=== PATIENT | male | born 1945 | race Caucasian/White ===

== ENCOUNTER → 2021-06-28 | Outpatient (CLI) | payer OTHER | END | disposition home or self-care (01) | LOC: SHCH 14:41 | PROVIDERS: ATTEND Internal Medicine | DX: I08.8 Other rheumatic multiple valve diseases (principal); I48.0 Paroxysmal atrial fibrillation; E78.5 Hyperlipidemia, unspecified; I77.810 Thoracic aortic ectasia | CPT/HCPCS: 93306 ==

== ENCOUNTER → 2022-05-19 | Outpatient (CLI) | payer OTHER | END | disposition home or self-care (01) | LOC: RAH 13:03 | PROVIDERS: ATTEND Internal Medicine Cardiovascular Disease | DX: Z13.6 Encounter for screening for cardiovascular disorders (principal); I51.5 Myocardial degeneration | CPT/HCPCS: 75571 ==

== ENCOUNTER → 2022-07-01 | Outpatient (CLI) | payer OTHER ==
[~2022-07-01] MED LIST: REGADENOSON 0.4 MG/5 ML PF SYG IVP SCH
== END | disposition home or self-care (01) ==
LOC: SHCH 08:13
PROVIDERS: ATTEND Internal Medicine Cardiovascular Disease
DX: R07.9 Chest pain, unspecified (principal); I48.91 Unspecified atrial fibrillation; I51.7 Cardiomegaly
CPT/HCPCS: 78452; 96374; 93017; J2785; A9500 ×2

== ENCOUNTER 2023-05-19 05:56 | Day surgery (SDC) | payer OTHER ==
[2023-05-17 11:00] LABS: BASOPHILS # (AUTO) 0.04 K/uL (0.00-0.20); BASOPHILS % (AUTO) 0.6 % (0.0-5.0); EOSINOPHILS # (AUTO) 0.22 K/uL (0.00-0.70); EOSINOPHILS % (AUTO) 3.1 % (0.0-8.0); HEMATOCRIT 46.1 % (42-54); IMMATURE GRANULOCYTE ABSOLUTE 0.03 K/uL (0-1); LYMPHOCYTES # (AUTO) 2.9 K/uL (1.0-4.8); LYMPHOCYTES % (AUTO) 40.7 % (21.0-51.0); MEAN CORPUSCULAR HGB CONC 33.2 g/dL (32.0-36.0); MEAN CORPUSCULAR VOLUME 99.6 fL (79-99); MONOCYTES # (AUTO) 0.7 K/uL (0.1-1.0); NEUTROPHILS # (AUTO) 3.2 K/uL (1.8-7.7); NEUTROPHILS % (AUTO) 45.2 % (40.0-77.0); PLATELET COUNT (AUTO) 220 K/uL (130-400); RED BLOOD CELL COUNT(AUTO) 4.63 MIL/uL (4.50-6.20); RED CELL DISTRIBUTION WIDTH 13.5 % (11.0-15.5); WHITE BLOOD COUNT (AUTO) 7.1 K/uL (4.8-10.8)
[2023-05-17 11:13] LABS: CREATININE 0.9 mg/dL (0.5-1.5); POTASSIUM 4.4 mmol/L (3.5-5.1)
[2023-05-17 11:14] LABS: APPEARANCE,URINE CLEAR (CLEAR); BILIRUBIN,URINE NEGATIVE (NEGATIVE); COLOR,URINE LIGHT-YELLOW (YELLOW); GLUCOSE, URINE (UA) NEGATIVE (NEGATIVE); KETONES,URINE NEGATIVE (NEGATIVE); LEUKOCYTE ESTERASE ,URINE NEGATIVE Leu/uL (NEGATIVE); NITRATE,URINE NEGATIVE (NEGATIVE); OCCULT BLOOD,URINE NEGATIVE (NEGATIVE); PROTEIN,URINE NEGATIVE (NEGATIVE); UROBILINOGEN,URINE 0.2 mg/dL (0.2-1.0)
[2023-05-17 11:15] LABS: ADD UA MICROSCOPIC NO
[2023-05-17 11:34] LABS: INR 0.94 (0.85-1.15)
[2023-05-17 11:35] LABS: PARTIAL THROMBOPLASTIN TIME 31.3 SEC (26.3-35.5)
[2023-05-17 11:36] LABS: B-TYPE NATRIURETIC PEPTIDE 132 pg/mL (0-100)
[2023-05-17 11:43] VITALS: BP 165/88; PULSE 72; RESP 17
[2023-05-19] VITALS (10 sets, daily range): BP systolic 123–144; BP diastolic 70–90; PULSE 61–95; RESP 15–18
[~2023-05-19] VITALS: Ht 185.4 cm; Wt 106.0 kg
[~2023-05-19 05:56] MED LIST changes: +APIX5TAB PO; +BUPR-49 PO; +DOCUSATE PO; +FINA5TAB41 PO; +MELO-108 PO; -REGADENOSON 0.4 MG/5 ML PF SYG IVP SCH; +SENNA PO; +SIMV-46 PO; +TERA10CA4 PO
[2023-05-19] MEDS ORDERED: 0.9%NACL 1000ML 1,000 ML IV ONE (07:02)
[2023-05-19] MEDS ORDERED: SODIUM BICARB 50MEQ 50ML VIAL 50 ML ONE (08:39)
[2023-05-19] MEDS ORDERED: MIDAZOLAM HCL 1 MG/ML 2ML VIAL ONE ×2 (08:39→08:51)
[2023-05-19] MEDS ORDERED: IOHEXOL 350 MG/ML 100ML INFUS..BTL IV ONE (08:39)
[2023-05-19] MEDS ORDERED: MEPERIDINE-PF 25 MG/ML SYG ONE ×2 (08:39→08:51)
[2023-05-19] MEDS ORDERED: LIDOCAINE HCL 400MG/20ML VIAL ONE (08:39)
[2023-05-19] MEDS ORDERED: NITROGLYCERIN 50MG VIAL ONE (08:40)
[2023-05-19] MEDS ORDERED: HEPARIN 10,000 UNIT/10ML (1,000 UNIT/ML) VIAL ONE (08:40)
[2023-05-19] MEDS ORDERED: NICARDIPINE 25MG INJ IV ONE (08:40)
[2023-05-19] MEDS ORDERED: 0.9%NACL 1000ML 1,000 ML IV SCH (09:30)
== END 2023-05-19 13:45 | disposition home or self-care (01) ==
LOC: DAH 05:56
PROVIDERS: ATTEND Internal Medicine Cardiovascular Disease
DX: I25.119 Atherosclerotic heart disease of native coronary artery with unspecified angina pectoris (principal); I50.32 Chronic diastolic (congestive) heart failure; I48.21 Permanent atrial fibrillation; M19.90 Unspecified osteoarthritis, unspecified site; Z79.01 Long term (current) use of anticoagulants; Z79.899 Other long term (current) drug therapy; Z82.49 Family history of ischemic heart disease and other diseases of the circulatory system; Z83.3 Family history of diabetes mellitus; Z98.890 Other specified postprocedural states
CPT/HCPCS: 80048; 83880; 85025; 85610; 85730; 81003; 36415; 71045; 93005; 93458; C1769; A4649; C1894; Q9965; J3490 ×4; J7030; J1644 ×2; J2250 ×2; J2175 ×2; Q9967; A4215; A4222; A4221; A4663; A4216; A4606; A4223 ×3; 99156; 99157

== ENCOUNTER 2023-07-04 15:42 | Emergency (ER) | payer OTHER ==
[~2023-07-04] VITALS: Ht 182.9 cm; Wt 104.3 kg
[2023-07-04 15:44] VITALS: BP 170/76; PULSE 72; RESP 20
[2023-07-04] MEDS: METOCLOPRAMIDE 10 MG/2 ML VIAL IVP ONE (16:18)
[2023-07-04] MEDS: MORPHINE 2 MG SYG IVP ONE (16:18)
[2023-07-04] MEDS: CEFAZOLIN SODIUM 2 GM VIAL IVPB SCH (16:21)
[2023-07-04] MEDS ORDERED: ACET-2079 PO (18:52)
[2023-07-04] MEDS ORDERED: FLUT16H NASAL (18:52)
[2023-07-04] MEDS ORDERED: AMOX1TAB16 PO (18:52)
== END 2023-07-04 19:21 | disposition home or self-care (01) ==
LOC: EDH 15:42
DX: S02.2XXA Fracture of nasal bones, initial encounter for closed fracture (principal); S01.81XA Laceration without foreign body of other part of head, initial encounter; S01.21XA Laceration without foreign body of nose, initial encounter; E78.00 Pure hypercholesterolemia, unspecified; I10 Essential (primary) hypertension; I48.91 Unspecified atrial fibrillation; Z79.01 Long term (current) use of anticoagulants; Z79.1 Long term (current) use of non-steroidal anti-inflammatories (NSAID); W01.0XXA Fall on same level from slipping, tripping and stumbling without subsequent striking against object, initial encounter; Y93.89 Activity, other specified; Y92.89 Other specified places as the place of occurrence of the external cause; Y99.8 Other external cause status
CPT/HCPCS: 99285; 70450; 96365; 96375; 72125; 70486; 12015; J2270; J2765; J0690; 12013

== ENCOUNTER → 2024-03-28 | Outpatient (CLI) | payer OTHER ==
[~2024-03-28] MED LIST changes: +AMOX1TAB16 PO; +FLUT16H NASAL
--- NOTE | 2024-03-28 11:55 | HMCIMG ---
CHEST 1VW REASON: SHORTNESS OF BREATH; COMPARISON WITH V/Q SCAN COMPARISON: 05/17/2023 FINDINGS: Single view of the chest was obtained. Lungs are clear. Heart size is normal. There is no pulmonary vascular congestion. Mediastinum and bony thorax appear unremarkable. IMPRESSION: 1. Normal single view chest x-ray.
--- NOTE | 2024-03-28 12:09 | HMCIMG ---
NM PULMONARY/LUNG VENTILATION REASON: SHORTNESS OF BREATH COMPARISON: None TECHNIQUE: Routine images are obtained following and injection of technetium 99 MAA 4.6 mCi for perfusion imaging and inhalation 5 mCi xenon-133 gas for ventilation images. FINDINGS: There is normal-appearing pulmonary perfusion. There are no focal or wedge shaped defects to suggest a pulmonary embolism. Ventilation images are normal as well. IMPRESSION: 1. Normal ventilation/perfusion lung scan, no evidence of pulmonary embolism.
== END | disposition home or self-care (01) ==
LOC: RAH 08:49
PROVIDERS: ATTEND Internal Medicine Pulmonary Disease
DX: R06.09 Other forms of dyspnea (principal)
CPT/HCPCS: 78579; 71045; A9558

== ENCOUNTER → 2024-06-15 | Outpatient (CLI) | payer OTHER ==
--- NOTE | 2024-06-17 11:05 | HMCSR ---
APPROVED REPORT EXAM: Two-dimensional and M-mode echocardiogram with Doppler and color Doppler. INDICATION ICD: R06.02 Shortness of breath 2D Dimensions RVDd4.0 cmLVEF(%)34.3 (>50%)LVED Vol(simp.)147.0 mL IVSd0.6 (0.7-1.1cm)FS(%)16 %LVES Vol(simp.)74.2 mL LVDd4.9 (3.8-5.6cm)LA (2D)5.0 (1.6-4.0cm)LVEF(%, simp.)50 % PWd1.6 (0.7-1.1cm)Ao Root(2D)4.1 (2.0-3.7cm)LA ESV INDEX (4CH)39.30 mL/m2 IVSs0.8 cmLVOT diam2.4 (1.8-2.4cm)LA ESV INDEX (2CH)54.00 mL/m2 LVDs4.1 (2.5-4.0cm)LA ESV INDEX (BP)45.50 mL/m2 PWs1.4 cm M-Mode Dimensions EPSS1.1 cm LA (MM)5.2 (1.6-4.0cm) Ao Root(MM)4.0 (2.0-3.7cm) Aortic Valve AoV VTI0.3 mAo Mean GR3.0 mmHgLVOT VTI0.17 m ROMEO (VMAX)2.9 cm2Al P1/2T793 msAVA (VTI) 2.9 cm2 Mitral Valve MV E Vmax83.4 cm/sDECEL Jaws572 ms MV A Vmax42.2 cm/sP 1/2 T55 ms E/A ratio2.0MVA (PHT)4.0 cm2 MR Max PG68 mmHg TDI E/E' Tshmed27.6E/E' Lateral8.8 Medial E' Peak V6.60 cm/sLateral E' Peak V9.50 cm/s Tricuspid Valve TR Vmax1.8 m/sRAP (EST) 8 dgGwVBPV97.1 mmHg TR Peak GR13.1 mmHg Left Ventricle The left ventricle is normal size. There is normal left ventricular wall thickness. LVEF is 45%. No l eft ventricle thrombus noted on this study. The left ventricular diastolic function is normal. Right Ventricle The right ventricle is normal size. The right ventricular systolic function is normal. Atria The left atrium is severely dilated. There is no mass or thrombus suspected in the left atrium. The r ight atrium is moderately dilated. There is no mass or thrombus suspected in the right atrium. Aortic Valve The aortic valve is normal in structure. Trace of aortic regurgitation is present. There is no aortic valvular stenosis. Mitral Valve The mitral valve is normal in structure. There is mild mitral valve regurgitation noted. There is no mitral valve stenosis. Tricuspid Valve The tricuspid valve is normal in structure. There is trace of tricuspid valve regurgitation noted. Pulmonic Valve The pulmonary valve is normal in structure. There is no pulmonic valvular regurgitation. Great Vessels The aortic root is normal in size. IVC is not well visualized. Pericardium There is no pericardial effusion. Other Information Quality : Fair Conclusion The left ventricle is normal size. LVEF is 45%. No left ventricle thrombus noted on this study. The right ventricle is normal size. The left atrium is severely dilated. There is no mass or thrombus suspected in the left atrium. The right atrium is moderately dilated. The aortic valve is normal in structure. Trace of aortic regurgitation is present. There is no aortic valvular stenosis. The mitral valve is normal in structure. There is mild mitral valve regurgitation noted. There is no mitral valve stenosis. The tricuspid valve is normal in structure. There is trace of tricuspid valve regurgitation noted. There is no pulmonic valvular regurgitation. The aortic root is normal in size. IVC is not well visualized. There is no pericardial effusion.
== END | disposition home or self-care (01) ==
LOC: SHCH 08:20
PROVIDERS: ATTEND Internal Medicine Cardiovascular Disease
DX: I34.0 Nonrheumatic mitral (valve) insufficiency (principal); I51.7 Cardiomegaly; R06.02 Shortness of breath
CPT/HCPCS: 93306

== ENCOUNTER 2024-11-25 05:43 | Observation (INO) | payer OTHER ==
[2024-11-21 09:55] LABS: IMMATURE GRANULOCYTE ABSOLUTE 0.03 K/uL (0-1); NUCLEATED RED BLOOD CELLS 0.0 % (0.0-0.19); PLATELET COUNT (AUTO) 213 K/uL (130-400); RED BLOOD CELL COUNT(AUTO) 4.37 MIL/uL (4.50-6.20); RED CELL DISTRIBUTION WIDTH 13.2 % (11.0-15.5); WHITE BLOOD COUNT (AUTO) 7.6 K/uL (4.8-10.8)
[2024-11-21 09:58] VITALS: BP 131/82; PULSE 65; RESP 17; TEMP 97.5
[2024-11-21 10:03] LABS: CREATININE 1.0 mg/dL (0.5-1.3); GLOMERULAR FILTR. RATE CALC 78.0 mL/min (>90); GLUCOSE,RANDOM 95.0 mg/dL (70-105); SODIUM SERUM 143.0 mmol/L (136-145); UREA NITROGEN, BLOOD 18.0 mg/dL (7-18)
[2024-11-21 10:04] LABS: INR 1.03 (0.85-1.15)
--- NOTE | 2024-11-21 10:20 | NUR ---
RE: IS INITIAL IS INITIAL TEACHING DONE BY RT AISHA DURING PREOP.
[2024-11-25] VITALS (26 sets, daily range): BP systolic 99–145; BP diastolic 54–84; PULSE 52–84; RESP 14–18; TEMP 97–97.8; O2SAT 95–98
[~2024-11-25] VITALS: Ht 180.3 cm; Wt 108.3 kg
[~2024-11-25 05:43] MED LIST changes: +ALBU18HF7 IH; -AMOX1TAB16 PO; +ATOR40TA69 PO; -BUPR-49 PO; -DOCUSATE PO; -MELO-108 PO; +METO-391 PO; +SENN8.6T32 PO; -SENNA PO; +SILD25TA PO; -SIMV-46 PO; +TIOT4MIS3 IH; +VIT1CAPS5 PO
[2024-11-25] MEDS: LACTATED RINGERS 1000ML 1,000 ML IV ONE (06:28)
[2024-11-25] MEDS: GABAPENTIN 300 MG CAPSULE ONE (06:37)
[2024-11-25] MEDS: FAMOTIDINE 20MG VIAL IV ONE (06:38)
[2024-11-25] MEDS ORDERED: LIDOCAINE PF 100MG/5ML (2%) SYRINGE 5ML ONE (06:56)
--- NOTE | 2024-11-25 07:24 | DS ---
Discharge Summary Hospital Course Summary: The patient was admitted to the hospital postoperatively on 11/25/2024 after undergoing right total knee arthroplasty. They did well with routine postoperative pain control. They worked well with physical therapy. They developed some acute blood loss anemia but remained asymptomatic. The hospital course was otherwise uncomplicated. They were subsequently able to be discharged on postoperative day [] once discharge arrangements were made with home health physical therapy. Assessment/Plan: ASSESSMENT: [ ] PLAN: [ ] Home Medications: Reported Medications Tiotropium Br/Olodaterol HCl (Stiolto Respimat Inhal [place]) 2.5 Mcg-2.5 Mcg/Actuation Mist.inhal, 4 GM IH DAILY 11/21/24 Fluticasone Propionate (Flonase Nasal [employer]) 50 Mcg/Actuation [employer], 1 SPRAY NASAL HS, SPRAY 11/21/24 Atorvastatin Calcium (LIPITOR) 40 Mg Tablet, 40 MG PO HS, TAB 11/21/24 Albuterol Sulfate (Ventolin Hfa) 90 Mcg Hfa.aer.ad, 1 PUFF IH Q4HPRN PRN for SHORTNESS OF BREATH, INHALER 11/21/24 Sildenafil Citrate (Viagra) 25 Mg Tablet, 25 MG PO DAILY PRN for ERECTILE DYSFUNCTION, TAB 11/21/24 Sennosides (Senna) 8.6 Mg Tablet, 8.6 MG PO HS, TAB 11/21/24 Vit A/Vit C/Vit E/Zinc/Copper (Preservision Areds Softgel) 4,296-226 Capsule, 2 EACH PO HS, CAP 11/21/24 Metoprolol Succinate (Metoprolol Succinate) 50 Mg Tab.er.24h, 50 MG PO HS, TAB 11/21/24 Terazosin HCl (Terazosin HCl) 10 Mg Capsule, 10 MG PO HS, CAP 05/17/23 Finasteride (Finasteride) 5 Mg Tablet, 5 MG PO HS, TAB 05/17/23 Apixaban (Eliquis) 5 Mg Tablet, 5 MG PO BID, TAB 05/17/23 Discontinued Reported Medications Meloxicam (Meloxicam) 15 Mg Tablet, 15 MG PO DAILY, TAB 05/17/23 [Docusate/Sennos] No Conflict Check, 1 TAB PO BID 05/17/23 Simvastatin (Simvastatin) 40 Mg Tablet, 20 MG PO HS, TAB 05/17/23 Bupropion HCl (Bupropion Xl) 150 Mg Tab.er.24h, 150 MG PO AM, TAB 05/17/23 Discontinued Scripts Fluticasone Propionate (Flonase Nasal [employer]) 50 Mcg/Actuation [employer], 50 MCG NASAL BID, #1 BOTTLE Prov:CECE ROSS 07/04/23 Amoxicillin/Potassium Clav (Amox Tr-K Clv 875-125 mg Tab) 875 Mg-125 Mg Tablet, 1 EACH PO BID for 10 Days, #20 TAB Prov:CECE ROSS 07/04/23 JOHAN DE JESUS MD Nov 25, 2024 07:24
[2024-11-25] MEDS: TRANEXAMIC ACID 1000MG/10ML ONE (07:30)
[2024-11-25] MEDS: 0.9%NACL 1000ML 1,000 ML IV SCH (07:30)
[2024-11-25] MEDS ORDERED: FERROUS FUMARATE 324 MG TABLET PO PRN (07:30)
[2024-11-25] MEDS ORDERED: PoTASSium chloRIDE 20MEQ ER 20 MEQ ERTAB PO PRN (07:30)
[2024-11-25] MEDS ORDERED: HYDROcodone/APAP 5/325 1 TAB TABLET PO PRN (07:30)
[2024-11-25] MEDS ORDERED: PoTASSium chl 10% ELIXIR 20MEQ 20 MEQ/15 ML UDCUP PO PRN (07:30)
[2024-11-25] MEDS ORDERED: SILDENAFIL CITRATE 25 MG PO PRN (07:30)
[2024-11-25] MEDS ORDERED: CALCIUM CARB 500MG PO PRN (07:30)
--- NOTE | 2024-11-25 07:39 | EKG ---
[facility] Test Date: 2024-11-25 Test Time: 06:44:44 Pat Name: ALEC ESTRADA Department[facility] Room: 401 Gender: M [employer]ader: [id number] : 1945 Requested By: DELGADO DUNCAN Order Number: [id number] Reading MD: Teressa Messer Measurements Intervals Jelm Rate: 68 P: 0 AK: 0 QRS: 12 QRSD: 89 T: 47 QT: 422 QTc: 448 Interpretive Statements Atrial fibrillation Compared to ECG 05/17/2023 10:51:28 No significant changes Electronically Signed On 11-25-2024 15:30:33 CDT by Teressa Messer Please click the below link to view image of tracing.
[2024-11-25] MEDS ORDERED: GLYCOPYRROLATE 0.2 MG/ML 5 ML VIAL ONE (07:40)
[2024-11-25] MEDS ORDERED: NEOSTIGMINE METHYLSULFATE 1MG/ML IV ONE (07:41)
[2024-11-25] MEDS ORDERED: ALBUTEROL SULFATE IH PRN (08:00)
[2024-11-25] MEDS: OLODATEROL HCL IH SCH (09:00)
[2024-11-25] MEDS: TIOTROPIUM BR IH SCH (09:00)
[2024-11-25] MEDS: TRANEXAMIC ACID 1000MG/10ML IV ONE ×2 (09:22)
--- NOTE | 2024-11-25 10:36 | HMCIMG ---
EXAM: CR right Knee, 2 View. CLINICAL HISTORY: S/P RT TKA SURGERY COMPARISON: None provided. FINDINGS: Right knee, 2 views Cemented right total knee arthroplasty is in near anatomic alignment. No periprosthetic fractures appreciated. Appropriate postsurgical changes about the right knee joint. IMPRESSION: 1. Right total knee arthroplasty is near anatomic alignment with no periprosthetic fracture appreciated. /[place]
--- NOTE | 2024-11-25 11:00 | NUR ---
PATIENT REPORT RECEIVED PATIENT FROM PACU NURSE ARLINE. PATIENT IN STABLE CONDITION. NO SIGNS OF DISTRESS NOTED. VITALS STABLE, ON 3L NC. NEURO CHECKS PERFORMED. KATERINA BANDAGE TO RIGHT KNEE. RT NOTIFIED, PT AWARE.
--- NOTE | 2024-11-25 11:41 | OP ---
Operative Note: DATE OF PROCEDURE: 11/25/24 PREOPERATIVE DIAGNOSIS: Right knee osteoarthritis. POSTOPERATIVE DIAGNOSIS: Right knee osteoarthritis. PROCEDURE PERFORMED: Right knee total knee arthroplasty. SURGEON: Melina Cox MD [employer] SALES TEAMMATE: Constance Quinn. ANESTHESIA: General with adductor canal block. ANESTHESIA: RODRÍGUEZ Abebe. ESTIMATED BLOOD LOSS: 50cc. COMPLICATIONS: None. DRAINS: None. SPECIMENS REMOVED: resected bone. Not sent to pathology. IMPLANTS: [employer] Journey II BCS size 8 Oxinium femur, size 7 tibial base plate, 35 x 7.5 mm patella, 9 mm polyethylene STATEMENT OF MEDICAL NECESSITY: The patient is a 79-year-old male who suffers from right knee osteoarthritis failing conservative management. After discussion of the risks, benefits, and alternatives with the patient, they voluntarily agreed to undergo the aforementioned procedure. DESCRIPTION OF PROCEDURE: Patient was properly identified in the preoperative holding area. Surgical site marking was verified and surgery consent reviewed. The patient was then taken to the operating room and placed in supine position on the OR table. After induction of general anesthesia, preoperative antibiotics were given, all bony prominences were well-padded, and a well padded tourniquet was applied but not inflated at this time. The right lower extremity was then prepped and draped in usual sterile fashion. Surgical time out was done verifying correct surgery, side, site, and location to be performed. We then began the procedure by exsanguinating the limb using an Esmarch and inflating the tourniquet to 350 mmHg. At this point, we made an anterior midline incision using a 10 blade, coming down sharply the level of the fascia. Skin flaps were elevated medially and laterally. We then obtained a clean 10 blade and performed a standard medial parapatellar arthrotomy. We excised the infrapatellar fat pad. We performed our soft tissue releases off of the tibia. We transected the ACL and removed the anterior portion of the medial & lateral meniscus. We then brought the knee into hyperflexion with the patella everted. We used our entry reamer to enter the femoral canal. We then placed our intramedullary cutting guide for our distal femoral cutting block. We then performed our distal femoral osteotomy ensuring appropriate rotation and removed the bony wafer. We then removed these pins and block and then used jig 2 to size the distal femur with the after mentioned size found. We then placed our 5-in-1 cutting block in 4 degrees of external rotation and took our 5 cuts ensuring to protect the patellar tendon and the collateral ligaments. We then removed the cutting block and our bony fragments using a curved osteotome. We then placed our PCL retractor subluxating the tibia anteriorly. Using an extra medullary tibial cutting guide, we hung the block for our proximal tibial cut taking 2 mm off the more diseased portion. Prior to pinning this block in place, we ensured appropriate varus/valgus alignment and posterior slope similar to the stockbridge slope of the patient's knee. We then performed our proximal tibial osteotomy and removed the bony wafer using Bovie electrocautery to release any remaining soft tissue attachments. We then used our tibial sizing paddle and checked once more for varus & valgus alignment and found this to be appropriate. At this point, we pinned our tibial paddle in place. We then removed the PCL retractor and subluxated the tibia posteriorly while we placed our femoral trial component. We then finished preparing the notch with the reamer and box chisel. The notch portion of the trial femoral component was then placed. A posterior stabilized polyethylene, size 9 trial was placed. The knee was then taken through range of motion and found to have stable full range of motion. We then placed a bump under the ankle and everted the patella to perform our freehand cut of the undersurface the patella. We then sized our patella and reamed to the lug holes for this. We placed our trial patellar component and begin to take the knee through range of motion. The patella had extreme lateral tracking, and we performed a lateral release. However the patella continued to have significant lateral tracking. We therefore elected to go with the 7.5 mm thickness patellar component. At this point we began removing our trial components and punched the tibial keel prior to removing our tibial trial component. Final components were opened and cement was mixed on the back table while we in jected local cocktail in the posterior capsule. We then thoroughly irrigated out the bone and dried the bony surfaces. We cemented our tibial component in place ensuring to remove excess cement and placed our trial polyethylene. We then cemented our femoral component in place once again taking time to ensure excess cement was removed leg was brought into full extension to help squeeze the excess cement from around the femoral component. We then brought the knee back in a flexion to remove this portion of the cement at this point we placed the ankle in a bump thoroughly irrigated off the patellar component and cemented our patellar component in standard fashion again removing excess cement. While we waited for the cement to cure, we thoroughly irrigated out the wound with normal saline. Once our cement had cured, we took the knee through a range of motion and found full and stable range of motion. We then elected to use the size 9 polyethylene and removed our trial polyethylene. We impacted our final polyethylene component in place in standard fashion and took the knee through a range of motion check once more. This was satisfactory so we began to repair the arthrotomy using #1 Vicryl in interrupted [id number] fashion. Subcutaneous tissue was repaired using 2-0 Vicryl. Running subcuticular 3-0 Monocryl stitch with Dermabond placed over this for the skin. We then applied a foam barrier dressing and a pressure dressing consisting of 4 x 4's fluffs and an Rajinder wrap. The tourniquet was then deflated. Patient was awakened from anesthesia, and they were taken to the recovery room in stable condition. MELINA COX MD Nov 25, 2024 11:41
[2024-11-25] MEDS: HYDROcodone/APAP 5/325 1 TAB TABLET PO PRN (13:28)
--- NOTE | 2024-11-25 16:13 | NUR ---
DCP CM MET WITH PT THIS AFTERNOON, INITIAL ASSESSMENT DONE. PATIENT IS INDEPENDENT PRIOR TO SURGERY, LIVES AT HOME WITH HIS AND MOTHER IN LAW. PT VERBALIZED HE HAS A WALKER THAT BELONGS TO HIS MOTHER IN LAW. DENIES ANY OTHER EQUIPMENT/SERVICES. FEELS SAFE TO GO BACK HOME, STILL DRIVE, ABLE TO ASSIST WITH TRANSPORTATION AND NEEDS NECESSARY. DISCUSSED MD RECOMMENDATIONS FOR HOME W/HH AND WILL NEED OWN DME STANDARD WALKER, PT AGREEABLE, CONSENT SIGNED HYACIN[facility] FOR [facility] AND [facility]. [facility] W/HH AND DME ONCE APPROVED. CM TO CONTINUE TO FOLLOW UP. Addendum: 11/25/24 at 1616 by BEKAH ROSS LVN Amended: Links added.
[2024-11-25] MEDS: SENNOSIDES 8.6 MG TABLET PO SCH (20:19)
[2024-11-25] MEDS: TERAZOSIN 5MG CAP PO SCH (20:19)
[2024-11-25] MEDS: (Vit A/Vit C/Vit E/Zinc/Copper (Preservision Areds Softgel PO SCH (21:00)
[2024-11-26 00:01] VITALS: BP 129/63; PULSE 65; RESP 17; TEMP 98
[2024-11-26] MEDS: CYCLOBENZAPRINE HCL 10 MG TABLET PO PRN (02:09)
[2024-11-26] MEDS: HYDROcodone/APAP 5/325 1 TAB TABLET PO PRN (02:09)
--- NOTE | 2024-11-26 02:09 | NUR ---
PAIN PATIENT GIVEN NORCO 5/325MG 2 PO AND FLEXERIL 5MG PO AT THIS TIME FOR PAIN SCORE OF 7/10. PRIMARY NURSE ADVISED.
[2024-11-26 04:25] VITALS: BP 165/98; PULSE 59; RESP 18; TEMP 98.1
[2024-11-26 04:37] LABS: NUCLEATED RED BLOOD CELLS 0.0 % (0.0-0.19); PLATELET COUNT (AUTO) 189.0 K/uL (130-400); RED BLOOD CELL COUNT(AUTO) 3.66 MIL/uL (4.50-6.20); RED CELL DISTRIBUTION WIDTH 13.6 % (11.0-15.5); WHITE BLOOD COUNT (AUTO) 15.6 K/uL (4.8-10.8)
[2024-11-26 04:48] LABS: CREATININE 0.9 mg/dL (0.5-1.3); GLOMERULAR FILTR. RATE CALC 88.0 mL/min (>90); GLUCOSE,RANDOM 144.0 mg/dL (70-105); SODIUM SERUM 140.0 mmol/L (136-145); UREA NITROGEN, BLOOD 26.0 mg/dL (7-18)
--- NOTE | 2024-11-26 07:54 | PN ---
Ortho postop day one. This morning the patient is awake alert and oriented. He is seated out of bed in a chair resting comfortably enjoying his breakfast reporting adequate pain control. I have removed the Rajinder bandage in the anterior dressing is intact. I have instructed him to alternate extension and flexion using a footstool throughout the day while he is seated in a chair. Vital signs have been slightly hypertensive which he is concerned I have discussed with the patient that this is likely a pain response we will continue to monitor and treat if necessary. Otherwise patient has been afebrile. Laboratory results reviewed. Noted to have a drop in hemoglobin and hematocrit as expected after TKA patient is asymptomatic we will continue to address per protocol. Operative findings discussed with the patient. Voiding on his own but yet to pass gas. Reinforced incentive spirometry The gastrocnemius a soft nontender. Negative Homans. Distal neurovascular exam normal. And ambulated yesterday with physical therapy pending therapy this morning. Anticipated discharge goal is home health/PT. Assessment: Status post right total knee arthroplasty. Asymptomatic acute postoperative blood loss anemia. Plan: Continue with Dr. Cox's TKA protocol and discharge planning. Asymptomatic acute postoperative blood loss anemia addressed with the protocol as necessary Vitals/Labs Vital Signs Date Time Temp Pulse Resp B/P (MAP) Pulse Ox O2 Delivery O2 Flow Rate FiO2 11/26/24 04:25 98.1 59 18 165/98 96 11/25/24 20:12 Room Air 11/25/24 20:00 0 21 Laboratory Tests 11/26/24 03:34 Medications Current Medications Cefazolin Sodium 2 gm STK-MED ONCE .ROUTE Last administered on 11/25/24at 07:40; Start 11/25/24 at 05:56; Stop 11/25/24 at 05:56; Status DC Lactated Ringer's 1,000 ml @ As Directed STK-MED ONCE IV Last administered on 11/25/24at 06:28; Start 11/25/24 at 05:56; Stop 11/25/24 at 05:56; Status DC Tranexamic Acid 1,000 mg STK-MED ONCE .ROUTE Last administered on 11/25/24at 07:30; Start 11/25/24 at 06:32; Stop 11/25/24 at 06:33; Status DC Ketorolac Tromethamine 30 mg STK-MED ONCE .ROUTE Last administered on 11/25/24at 08:47; Start 11/25/24 at 06:32; Stop 11/25/24 at 06:33; Status DC Ropivacaine 150 mg STK-MED ONCE .ROUTE Last administered on 11/25/24at 08:47; Start 11/25/24 at 06:32; Stop 11/25/24 at 06:33; Status DC Gabapentin 300 mg STK-MED ONCE .ROUTE; Start 11/25/24 at 06:37; Stop 11/25/24 at 06:38; Status DC Acetaminophen 100 ml @ As Directed STK-MED ONCE .ROUTE; Start 11/25/24 at 06:37; Stop 11/25/24 at 06:38; Status DC Famotidine 20 mg STK-MED ONCE IV; Start 11/25/24 at 06:38; Stop 11/25/24 at 06:38; Status DC Ropivacaine 150 mg STK-MED ONCE .ROUTE; Start 11/25/24 at 06:50; Stop 11/25/24 at 06:50; Status DC Ketamine HCl 50 mg STK-MED ONCE .ROUTE; Start 11/25/24 at 06:50; Stop 11/25/24 at 06:50; Status DC Ropivacaine 150 mg STK-MED ONCE .ROUTE; Start 11/25/24 at 06:51; Stop 11/25/24 at 06:51; Status DC Lidocaine HCl 100 mg STK-MED ONCE .ROUTE; Start 11/25/24 at 06:56; Stop 11/25/24 at 06:56; Status DC Propofol 200 mg STK-MED ONCE IV; Start 11/25/24 at 06:56; Stop 11/25/24 at 06:56; Status DC Rocuronium [place] 50 mg STK-MED ONCE .ROUTE; Start 11/25/24 at 06:56; Stop 11/25/24 at 06:56; Status DC Fentanyl Citrate 100 mcg STK-MED ONCE .ROUTE; Start 11/25/24 at 06:56; Stop 11/25/24 at 06:57; Status DC Sodium Chloride 1,000 ml @ 100 mls/hr Q10H IV Last administered on 11/25/24at 07:30; Start 11/25/24 at 07:30; Stop 11/26/24 at 07:29; Status DC Polyethylene Glycol 17 gm DAILY PO; Start 11/25/24 at 09:00; Stop 12/25/24 at 08:59 Bisacodyl 10 mg DAILY PRN RC; Start 11/28/24 at 07:30; Stop 12/28/24 at 07:29 Ketorolac Tromethamine 15 mg Q6H PRN IV; Start 11/26/24 at 07:30; Stop 12/01/24 at 07:29 Ferrous Fumarate 324 mg DAILY PRN PO; Start 11/25/24 at 07:30; Stop 12/25/24 at 07:29 Ondansetron HCl 4 mg Q6H PRN IVP; Start 11/25/24 at 07:30; Stop 12/25/24 at 07:29 Calcium Carbonate 500 mg Q12H PRN PO; Start 11/25/24 at 07:30; Stop 12/25/24 at 07:29 Cefazolin Sodium 2 gm Q8H IVP Last administered on 11/25/24at 20:19; Start 11/25/24 at 12:30; Stop 11/25/24 at 20:31; Status DC Cyclobenzaprine HCl 5 mg Q8H PRN PO Last administered on 11/26/24at 02:09; Start 11/25/24 at 07:30; Stop 12/25/24 at 07:29 Gabapentin 100 mg TID PO Last administered on 11/25/24at 20:20; Start 11/25/24 at 09:00; Stop 12/25/24 at 08:59 Aspirin 325 mg DAILY PO; Start 11/26/24 at 09:00; Stop 12/26/24 at 08:59 Ketorolac Tromethamine 15 mg Q8H IV; Start 11/25/24 at 07:30; Stop 11/25/24 at 11:29; Status DC Docusate Sodium 100 mg BID PO Last administered on 11/25/24at 20:19; Start 11/25/24 at 09:00; Stop 12/25/24 at 08:59 Potassium Chloride 20 meq AD PRN PO; Start 11/25/24 at 07:30; Stop 12/25/24 at 07:29 Potassium Chloride 20 meq AD PRN PO; Start 11/25/24 at 07:30; Stop 12/25/24 at 07:29 Tramadol HCl 50 mg Q6H PRN PO; Start 11/25/24 at 07:30; Stop 11/30/24 at 07:29 Acetaminophen/ Hydrocodone Bitart Q4H PRN PO; Start 11/25/24 at 07:30; Stop 11/25/24 at 07:38; Status DC Atorvastatin Calcium 40 mg HS PO Last administered on 11/25/24at 20:20; Start 11/25/24 at 21:00; Stop 12/25/24 at 20:59 Finasteride 5 mg HS PO Last administered on 11/25/24at 20:19; Start 11/25/24 at 21:00; Stop 12/25/24 at 20:59 Fluticasone Propionate 1 SPRAY HS EN; Start 11/25/24 at 21:00; Stop 12/25/24 at 20:59 Metoprolol Succinate 50 mg HS PO Last administered on 11/25/24at 20:19; Start 11/25/24 at 21:00; Stop 12/25/24 at 20:59 Home Med (Albuterol Sulfate (Zhnag... Q4HPRN PRN IH; Start 11/25/24 at 08:00; Stop 12/25/24 at 07:59 Miscellaneous Medication 25 mg DAILY PRN PO; Start 11/25/24 at 07:30; Stop 11/25/24 at 07:34; Status DC Terazosin HCl 10 mg HS PO Last administered on 11/25/24at 20:19; Start 11/25/24 at 21:00; Stop 12/25/24 at 20:59 Home Med (Tiotropium Br/ Olodate... DAILY IH; Start 11/25/24 at 09:00; Stop 12/25/24 at 08:59 Home Med (Vit A/Vit C/ Vit E/Zinc/ Extension Work Director... HS PO; Start 11/25/24 at 21:00; Stop 12/25/24 at 20:59 Ondansetron HCl 4 mg STK-MED ONCE .ROUTE; Start 11/25/24 at 07:32; Stop 11/25/24 at 07:32; Status DC Dexamethasone Sodium Phosphate 10 mg STK-MED ONCE .ROUTE; Start 11/25/24 at 07:32; Stop 11/25/24 at 07:32; Status DC Acetaminophen/ Hydrocodone Bitart 1 tab Q4H PRN PO Last administered on 11/25/24at 22:57; Start 11/25/24 at 08:00; Stop 11/30/24 at 07:59 Acetaminophen/ Hydrocodone Bitart 2 tab Q4H PRN PO Last administered on 11/26/24at 02:09; Start 11/25/24 at 08:00; Stop 11/30/24 at 07:59 Glycopyrrolate 1 mg STK-MED ONCE .ROUTE; Start 11/25/24 at 07:40; Stop 11/25/24 at 07:41; Status DC Neostigmine Methylsulfate 10 mg STK-MED ONCE IV; Start 11/25/24 at 07:41; Stop 11/25/24 at 07:41; Status DC Ephedrine Sulfate 50 mg STK-MED ONCE .ROUTE; Start 11/25/24 at 07:41; Stop 11/25/24 at 07:41; Status DC Dexmedetomidine HCl 200 mcg STK-MED ONCE IV; Start 11/25/24 at 08:02; Stop 11/25/24 at 08:02; Status DC Tranexamic Acid 1,000 mg STK-MED ONCE IV; Start 11/25/24 at 00:00; Stop 11/25/24 at 00:01; Status Cancel Tranexamic Acid 1,000 mg STK-MED ONCE IV Last administered on 11/25/24at 09:22; Start 11/25/24 at 09:22; Stop 11/25/24 at 09:24; Status DC Fentanyl Citrate 100 mcg STK-MED ONCE .ROUTE Last administered on 11/25/24at 10:21; Start 11/25/24 at 10:18; Stop 11/25/24 at 10:18; Status DC Ketorolac Tromethamine 15 mg Q8H IV Last administered on 11/26/24at 03:37; Start 11/25/24 at 11:30; Stop 11/26/24 at 03:31; Status DC Sennosides 1 tab HS PO Last administered on 11/25/24at 20:19; Start 11/25/24 at 21:00; Stop 12/25/24 at 20:59 GOKUL PAGE NP Nov 26, 2024 07:54
[2024-11-26 08:00] VITALS: BP 110/65; PULSE 78; RESP 18; TEMP 98
[2024-11-26 08:51] VITALS: O2SAT 97
[2024-11-26] MEDS: ASPIRIN 325MG EC TAB PO SCH (09:05)
--- NOTE | 2024-11-26 09:11 | NUR ---
MEDICATION REFUSAL PATIENT REFUSED AM DOSE OF MIRALAX AND DOCUSATE. EDUCATION PROVIDED. PATIENT REFUSED.
[2024-11-26 12:00] VITALS: BP 131/67; PULSE 60; RESP 18; TEMP 98.4
[2024-11-26] MEDS ORDERED: HYDR-4060 PO (13:40)
[2024-11-26] MEDS ORDERED: GABA100C PO (13:40)
[2024-11-26] MEDS ORDERED: DOCU-116 PO (13:40)
[2024-11-26] MEDS ORDERED: CYCL-309 PO (13:40)
--- NOTE | 2024-11-26 13:45 | NUR ---
Ortho Coordinator: Teaching regarding DVT and pneumonia preventions. Pain Expectations and pain management. Patient up to chair. Dressing to right knee clean, dry and intact. Patient reports pain in control. Incentive spirometer at bedside. Patient verbalized frequency of use. Patient feels comfortable returning home, spouse is a nurse. Instructed patient to continue premedication prior to physical therapy and during periods of high activity, to continue use of incentive spirometry until activity levels reach pre-surgery. Patient return demonstrated foot flexion/extension exercises, rationale for performing provided. Patient verbalized understanding to all instructions. Case management at bedside, lynne paperwork for walker completed. Patient verbalized understanding to all instructions. No additional questions or concerns at this time.
--- NOTE | 2024-11-26 16:43 | NUR ---
PATIENT DISCHARGE PERIPHERAL IV DISCONTINUED, CATHETER INTACT. DISCHARGE INSTRUCTIONS GIVEN. PRESCRIPTIONS FAXED TO [facility]. PATIENT AWARE TO F/U WITH DR. DE JESUS 12/17 AT 9:15 AM. DRESSING TO RT KNEE CLEAN DRY AND INTACT. PATIENT REPORTS PAIN OF 1/10 ON DISCHARGE. EDUCATION PROVIDED. REPORT CALLED TO [facility]. S/W VERONICA CAMPBELL, ALL QUESTIONS ANSWERED. PATIENT TAKEN DOWN BY WHEELCHAIR.
== END 2024-11-26 16:25 | disposition home or self-care (01) ==
LOC: DAH 05:43 → DAHIP 05:44 → 4AH 11:00
PROVIDERS: ADMIT Student in an Organized Health Care Education/Training Program; ATTEND Student in an Organized Health Care Education/Training Program
DX: M17.11 Unilateral primary osteoarthritis, right knee (principal); G89.18 Other acute postprocedural pain; R26.89 Other abnormalities of gait and mobility; M24.561 Contracture, right knee; D62 Acute posthemorrhagic anemia; Z98.890 Other specified postprocedural states; Z79.899 Other long term (current) drug therapy
CPT/HCPCS: 82040; 80048 ×2; 85025; 85610; 85730; 84134; 86140; 36415 ×2; 87641; 27447; 96374; 96376 ×2; 96375; 64447; 73560; 97161; 97116 ×3; 97530 ×5; 93005; 85027; G0378 ×33; A4663; J7120 ×2; A4600; J3490 ×8; J3010 ×2; J1100; J2003; J2704; J2405; J1885 ×4; J2710; J2795 ×3; J0690 ×3; C1713 ×2; C1776 ×2; A4649 ×2; A4930; A6255; A5120; A4215; A4223 ×2; A4213; A4222; A4221; A4216

== ENCOUNTER 2024-12-27 08:20 | Day surgery (SDC) | payer OTHER ==
[2024-12-25 13:30] VITALS: BP 115/66; PULSE 86; RESP 14; TEMP 97.9
--- NOTE | 2024-12-25 13:31 | EKG ---
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
[2024-12-25 13:32] LABS: IMMATURE GRANULOCYTE ABSOLUTE 0.05 K/uL (0-1); NUCLEATED RED BLOOD CELLS 0.0 % (0.0-0.19); PLATELET COUNT (AUTO) 256 K/uL (130-400); RED BLOOD CELL COUNT(AUTO) 3.91 MIL/uL (4.50-6.20); RED CELL DISTRIBUTION WIDTH 13.8 % (11.0-15.5); WHITE BLOOD COUNT (AUTO) 8.4 K/uL (4.8-10.8)
[2024-12-25 13:41] LABS: INR 1.06 (0.85-1.15)
[2024-12-25 13:48] LABS: CREATININE 0.8 mg/dL (0.5-1.3); GLOMERULAR FILTR. RATE CALC 91.0 mL/min (>90); GLUCOSE,RANDOM 126.0 mg/dL (70-105); SODIUM SERUM 140.0 mmol/L (136-145); UREA NITROGEN, BLOOD 19.0 mg/dL (7-18)
--- NOTE | 2024-12-25 17:00 | NUR ---
RE: ELIQUMARQUIS INFORMED MARTÍNEZ COLIN NP THAT PATIENT TOOK HIS ELIQUIS THIS MORNING AND ORDER STATES TO HOLD FOR 48 HOURS BEFORE PROCEDURE. NO NEW ORDERS, OK TO PROCEED.
[2024-12-27] VITALS (10 sets, daily range): BP systolic 96–147; BP diastolic 64–88; PULSE 65–86; RESP 10–19; TEMP 97.1–97.2
[~2024-12-27] VITALS: Ht 182.9 cm; Wt 101.3 kg
[~2024-12-27 08:20] MED LIST changes: -ATOR40TA69 PO; -FLUT16H NASAL; -SENN8.6T32 PO; -SILD25TA PO; +SIMV-43 PO
[2024-12-27] MEDS: 0.9%NACL 1000ML 1,000 ML IV SCH (09:01)
[2024-12-27] MEDS ORDERED: SODIUM BICARB 50MEQ 50ML VIAL 0 ML ONE (13:41)
[2024-12-27] MEDS ORDERED: LIDOCAINE HCL 1% MDV 50ML VIAL ONE (13:41)
[2024-12-27] MEDS ORDERED: MIDAZOLAM HCL 1 MG/ML 2ML VIAL ONE ×5 (13:52→14:43)
[2024-12-27] MEDS ORDERED: IODIXANOL 320 MG/ML 100 ML VIAL ONE (14:07)
--- NOTE | 2024-12-27 15:55 | NUR ---
DRESSING: PRESSURE DRESSING TO LEFT UPPER CHEST DRY/INTACT, NO ACTIVE BLEEDING PRESENT. ICE PACK APPLIED ON ARRIVAL TO DAY PATIENT. LEFT ARM IN PLACE TO SLING.
--- NOTE | 2024-12-27 16:10 | NUR ---
DRESSING: PRESSURE DRESSING TO LEFT UPPER CHEST DRY/INTACT WITH NO ACTIVE BLEEDING NOTED. ICE BAG IN PLACE TO SITE. LEFT ARM IN PLACE TO ARM SLING.
--- NOTE | 2024-12-27 16:20 | NUR ---
DRESSING: PRESSURE DRESSING TO LEFT UPPER CHEST REMAINS DRY/INTACT WITH NO ACTIVE BLEEDING PRESENT. ICE BAG IN PLACE TO SITE. LEFT ARM IN PLACE TO ARMS SLING
--- NOTE | 2024-12-27 16:30 | NUR ---
DRESSING: DRESSING TO LEFT UPPER CHEST REMAINS DRY/INTACT WITH NO ACTIVE BLEEDING PRESENT. ICE BAG IN PLACE TO SITE. LEFT ARM IN PLACE TO ARM SLING.
--- NOTE | 2024-12-27 17:00 | NUR ---
DRESSING: PRESSURE DRESSING TO LEFT UPPER CHEST REMAINS DRY/INTACGT WITH NO ACTIVE BLEEDING NOTED. ICE BAG IN PLACE TO SITE. LEFT ARM REMAINS IN PLACE TO SLING.
--- NOTE | 2024-12-27 17:10 | NUR ---
BLOOD PRESSURE: DR. BOYCE MADE AWARE OF 'S CONCERN FOR BLOOD PRESSURE READINGS RANGING FROM 137/84 - [id number]. NO ORDERS GIVEN.
--- NOTE | 2024-12-27 17:30 | NUR ---
DRESSING: PRESSURE DRESSING TO LEFT UPPER CHEST REMAINS DRY/INTACT WITH NO ACTIVE BLEEDING NOTED. ICE BAG IN PLACE. LEFT ARM IN PLACE TO ARM SLING
--- NOTE | 2024-12-27 18:00 | NUR ---
DRESSING: PRESSURE DRESSING TO LEFT UPPER CHEST REMAINS DRY/INTACT, ICE BAG IN PLACE. LEFT ARM IN PLACE TO ARM SLING.
--- NOTE | 2024-12-27 19:10 | NUR ---
DRESSING: PRESSURE DRESSING REMOVED. NONADHESIVE DRESSING WITH TEGADERM IN PLACE NO BLEEDING TO SITE. NO REDNESS/SWELLING NOTED TO SURROUNDING AREA. LEFT ARM IN PLACE TO SLING.
--- NOTE | 2024-12-27 19:44 | HMCIMG ---
EXAM: CR Chest, 2 View. CLINICAL HISTORY: s/p ppm insertion COMPARISON: None provided. FINDINGS: LUNGS: The lungs show no infiltrate or other acute finding. PLEURAL SPACES: No pleural effusion or pneumothorax. MEDIASTINUM: Pacemaker lead overlies the right ventricle. Heart size is stable. Pulmonary vessels and interstitial markings are within normal limits. BONES: No acute osseous abnormality. IMPRESSION: 1. No acute cardiopulmonary findings. 2. Right ventricular pacemaker lead in expected position. /[place]
--- NOTE | 2024-12-27 19:45 | NUR ---
DRESSING: DRESSING TO LEFT UPPER CHEST DRY/INTACT WITH NO ACTIVE BLEEDING PRESENT. NO REDNESS/SWELLING NOTED TO SURROUNDING AREA. LEFT ARM IN PLACE TO ARM SLING.
== END 2024-12-27 19:45 | disposition home or self-care (01) ==
LOC: DAH 08:20
PROVIDERS: ATTEND Internal Medicine Cardiovascular Disease
DX: I44.7 Left bundle-branch block, unspecified (principal); I48.91 Unspecified atrial fibrillation; I49.5 Sick sinus syndrome; Z79.01 Long term (current) use of anticoagulants; Z96.642 Presence of left artificial hip joint; Z79.899 Other long term (current) drug therapy
CPT/HCPCS: 80048; 85025; 85610; 85730; 36415; 93005; 33207; 71045; 99156; 99157 ×5; C1898; C1769; C1786; C1894; J3010 ×2; J0690 ×2; J3490 ×3; J7030; J0665; J2250 ×5; Q9967; A4215; A4657; A4222; A4221; A4663; A4216 ×2; A4606; A4223 ×3

== ENCOUNTER 2025-01-01 17:07 | Emergency (ER) | payer OTHER ==
[~2025-01-01] VITALS: Ht 182.9 cm; Wt 97.5 kg
[~2025-01-01 17:07] MED LIST changes: -METO-391 PO
--- NOTE | 2025-01-01 17:32 | ERN ---
ED Note History of Present Illness Stated Complaint: FALL Chief Complaint: Mechanical Fall Time Seen by MD: 17:10 Dictation: 79-year-old male presents to ER states he tripped and fell over his own feet at home. Landed onto concrete knees came down first then he tried to break his fall with his hands but his head hit the concrete denies LOC. bilateral knee abrasions. Right thumb pain and abrasion to left side of head Allergies: Coded Allergies: No Known Allergies (Verified Allergy, Unknown, 06/30/22) Home Meds Reported Medications Simvastatin (Simvastatin) 20 Mg Tablet, 20 MG PO HS, TAB 12/25/24 Tiotropium Br/Olodaterol HCl (Stiolto Respimat Inhal [place]) 2.5 Mcg-2.5 Mcg/Actuation Mist.inhal, 4 GM IH DAILY 11/21/24 Albuterol Sulfate (Ventolin Hfa) 90 Mcg Hfa.aer.ad, 1 PUFF IH Q4HPRN PRN for SHORTNESS OF BREATH, INHALER 11/21/24 Vit A/Vit C/Vit E/Zinc/Copper (Preservision Areds Softgel) 4,296-226 Capsule, 2 EACH PO DAILY, CAP 11/21/24 Terazosin HCl (Terazosin HCl) 10 Mg Capsule, 10 MG PO HS, CAP 05/17/23 Finasteride (Finasteride) 5 Mg Tablet, 5 MG PO HS, TAB 05/17/23 Apixaban (Eliquis) 5 Mg Tablet, 5 MG PO BID, TAB START ELIEQUIS ON 12/29/24 05/17/23 Discontinued Reported Medications Metoprolol Succinate (Metoprolol Succinate) 50 Mg Tab.er.24h, 50 MG PO HS, TAB 11/21/24 Fluticasone Propionate (Flonase Nasal [place]) 50 Mcg/Actuation [place], 1 SPRAY NASAL HS, SPRAY 11/21/24 Atorvastatin Calcium (LIPITOR) 40 Mg Tablet, 40 MG PO HS, TAB 11/21/24 Sildenafil Citrate (Viagra) 25 Mg Tablet, 25 MG PO DAILY PRN for ERECTILE DYSFUNCTION, TAB 11/21/24 Sennosides (Senna) 8.6 Mg Tablet, 8.6 MG PO HS, TAB 11/21/24 Discontinued Scripts Docusate Sodium (Colace) 100 Mg Capsule, 1 CAP PO BID for 30 Days, #60 CAP 0 Refills Prov:JOHAN DE JESUS MD 11/26/24 Hydrocodone/Acetaminophen (Hydrocodon-Acetaminophen 5-325) 5 Mg-325 Mg Tablet, 1-2 TAB PO Q4H PRN for SEVERE PAIN (7-10), #56 TAB 0 Refills Prov:JOHAN DE JESUS MD 11/26/24 Gabapentin (Neurontin) 100 Mg Capsule, 100 MG PO TID, #90 CAP 0 Refills Prov:JOHAN DE JESUS MD 11/26/24 Cyclobenzaprine HCl (Cyclobenzaprine HCl) 10 Mg Tablet, 5 MG PO Q8H PRN for MUSCLE SPASMS, #45 TAB 0 Refills Prov:JOHAN DE JESUS MD 11/26/24 Past Medical History Past Medical History: A-Fib, High Cholesterol, Hypertension Surgical History: Pacer/AICD Surgical History Other: RT KNEE SX, BILAT HIP SX Social History: Negative Review of System Dictation Constitutional: Negative for fever,chills, and weight loss Eyes: Negative for injury, pain,redness, and discharge ENT: Negative for injury,pain or swelling Cardiovascular: Negative for chest pain, palpitations, and edema Respiratory: Negative for shortness of breath, cough, wheezing, and pleuritic chest pain Abdomen/GI: Negative for abdominal pain, nausea, vomiting, diarrhea, and constipation Back: Negative for injury and pain : Negative for injury, bleeding and discharge MS/Extremity: Positive right thumb swelling, positive injury Skin: Positive abrasions, positive injury Neuro: Negative for headache, weakness, numbness, tingling, and seizure Psych: Negative for suicide ideation, homicidal ideation, and hallucinations Allergy/Immunology: Negative for hives, rash, and allergies Initial Vital Sign VS Vital Signs Date Time Temp Pulse Resp B/P (MAP) Pulse Ox O2 Delivery O2 Flow Rate FiO2 01/01/25 17:09 97.3 83 18 153/90 97 Room Air 0 Physical Exam Dictation General: awake, alert, NAD Head/Face: Normocephalic, positive left-sided head abrasion Eyes: PERRL, EOMI, vision at baseline ENT: oral cavity clear, TMs clear, no signs of infection Neck: Trachea midline, supple, no nuchal rigidity Cardiovascular: RRR, normal Respiratory: CTAB, no respiratory distress, No rales or wheezes Abdomen: Soft, non-tender, non-distended, normal bowel sounds, no guarding or rebound. Skin: Warm, dry, normal turgor, no rash. Positive approximately 3 cm in diameter abrasions to bilateral knees, 1 cm in diameter abrasion to left hand, 3 cm abrasion noted to left side of head MS/Extremity: Pulses equal, no cyanosis, neurovascular intact, positive bilateral knee contusions right knee mild swelling patient with history of 1 month knee surgery Neuro: COAx4, GCS 15, strength 5/5, CN 2-12 intact, normal cerebellar exam, normal gait, Psych: Normal behavior, mood, and affect normal Results (Laboratory/Radiology) EKG: (+) rhythm (PACED, RIGHT BUNDLE BRANCH BLOCK, NO STEMI) X-RAY Comment: EXAM: CR left knee, 3 View. CLINICAL HISTORY: Pain COMPARISON: None provided. FINDINGS: BONES: No acute fracture or aggressive appearing osseous lesion. JOINTS: Patellofemoral compartment predominant moderate to severe tricompartmental left knee joint osteoarthritis. Small knee joint effusion. SOFT TISSUES: The soft tissues are unremarkable. IMPRESSION: 1. Moderate to severe tricompartmental left knee osteoarthritis, predominantly patellofemoral, with small joint effusion. 2. No acute fracture. : CR right Knee, 3 View. CLINICAL HISTORY: Pain COMPARISON: None provided. FINDINGS: BONES: No acute fracture or aggressive appearing osseous lesion. JOINTS: Cemented right total knee arthroplasty is a near anatomic alignment. SOFT TISSUES: The soft tissues are unremarkable. IMPRESSION: 1. Right total knee arthroplasty in near anatomic alignment. 2. No acute findings. /[place] EXAM: CR right Hand, 3 View. CLINICAL HISTORY: Pain COMPARISON: None provided. FINDINGS: Multifocal osteoarthritis, severe at the thumb basal joint and wrist joint. Suspected nondisplaced intra-articular fracture of the base of the thumb distal phalanx. Thumb soft tissue edema. Joint spaces remain anatomically aligned. IMPRESSION: 1. Suspected nondisplaced intra-articular fracture of the base of the thumb distal phalanx with associated soft tissue edema. 2. 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 Scan Comment: EXAM: CT Head Without IV contrast. CLINICAL HISTORY: head injury TECHNIQUE: Axial computed tomography images of the head/brain without intravenous contrast. COMPARISON: None provided. FINDINGS: BRAIN: No acute bleed or infarct. Mild chronic ischemic and atrophic changes. VENTRICLES: No hydrocephalus. ORBITS: The orbits are unremarkable. SINUSES AND MASTOIDS: The paranasal sinuses and mastoid air cells are clear. BONES: No fracture. SOFT TISSUES: Unremarkable. IMPRESSION: No acute bleed or infarct. Mild chronic ischemic and atrophic changes. /[place] ED Course ED Course Orders Procedure Category Date Status Time Ct Head/Brain W/O CT 01/01/25 Resulted Contrast 17:24 Hand 3+Vws Rt RAD 01/01/25 Resulted 17:24 Knee 3vws Rt RAD 01/01/25 Resulted 17:24 Knee 3vws Lt RAD 01/01/25 Resulted 17:24 12 Lead Ekg Tracing- EKG 01/01/25 Logged Technical 17:32 Wound Care (Er) CPOE 01/01/25 Transmitted 17:32 Thumb Spica DEEDEE.ER 01/01/25 In Process 18:36 Bacitracin PHA 01/01/25 Complete (Bacitracin) 18:41 Current Medications Medications (Trade) Dose Ordered Sig/Lorin Route PRN Reason Start Time Stop Time Status Last Admin Dose Admin Bacitracin (Bacitracin) 1 each STK-MED ONCE TP 01/01/25 18:41 01/01/25 18:46 DC Vital Signs Date Time Temp Pulse Resp B/P (MAP) Pulse Ox O2 Delivery O2 Flow Rate FiO2 01/01/25 17:09 97.3 83 18 153/90 97 Room Air 0 Medical Decision Making MDM Will order CT of the head due to patient being on blood thinner, bilateral knee x-rays, right hand x-ray. tetanus up-to-date. Will add an EKG due to patient having pacemaker placed in 1 month ago. MDM: DIFFERENTIAL DIAGNOSIS: HEAD CONTUSION, HEAD BLEED, KNEE FRACTURE, KNEE CONTUSION, THUMB FRACTURE RATIONALE: TESTS CONSIDERED AND ORDERED SECONDARY TO SHARED DECISION MAKING INCLUDE: LABS, ECG AND RADIOLOGY PREVIOUS OUTSIDE RECORDS REVIEWED: OLD ER VISITS. RISK OF COMPLICATION AND/OR MORBIDITY OR MORTALITY OF PATIENT MANAGEMENT: NONE MEDICATIONS-PER MEDICATION RECONCILIATION NEED FOR HOSPITALIZATION: PATIENT DOES NOT MEET CRITERIA FOR HOSPITALIZATION. NEED FOR EMERGENCY MAJOR/MINOR SURGERY: NO THERE ARE NO SOCIAL CONCERNS WITH THIS PATIENT. PRESCRIPTION DRUG MANAGEMENT PRESCRIPTIONS WILL INCLUDE SYMPTOMATIC CARE PATIENT'S PRIOR EXTERNAL MEDICAL RECORDS FROM OTHER ER VISITS WERE REVIEWED BY ME INDICATED. PRIOR TESTING AND RESULTS FROM PREVIOUS VISITS WERE REVIEWED. PRIOR TESTS WERE TAKEN INTO ACCOUNT WITH MEDICAL DECISION MAKING AND RESOURCE UTILIZATION, INDEPENDENT HISTORIAN/HISTORIANS WERE USED TO OBTAIN COMPLETE MEDICAL HISTORY. I INDEPENDENTLY INTERPRETED THE TEST THAT WERE PERFORMED, RESULTS WERE REVIEWED BY ME AND CONSIDERED FINDINGS ON RADIOLOGY IF ORDERED. DX & DISP Disposition: Discharge Departure Impression: Primary Impression: Fall Additional Impressions: Abrasions of multiple sites, Fracture of thumb, right, closed, Head contusion, Knee contusion Condition: Stable Additional Instructions: FOLLOW-UP WITH YOUR ORTHOPEDIC FOR YOUR RIGHT THUMB FRACTURE. FOLLOW-UP WITH YOUR PCP IN 24-72 HOURS AND IN THE EVENT IF SYMPTOMS WORSEN OR AN EMERGENCY OVERNIGHT REPORT TO THE ED IMMEDIATELY Referrals: GEORGE COLINDRES MD (PCP) CORDELL REDMOND NP Jan 01, 2025 17:32
--- NOTE | 2025-01-01 17:45 | NUR ---
PT IN CT AT THIS TIME
--- NOTE | 2025-01-01 18:17 | HMCIMG ---
EXAM: CT Head Without IV contrast. CLINICAL HISTORY: head injury TECHNIQUE: Axial computed tomography images of the head/brain without intravenous contrast. COMPARISON: None provided. FINDINGS: BRAIN: No acute bleed or infarct. Mild chronic ischemic and atrophic changes. VENTRICLES: No hydrocephalus. ORBITS: The orbits are unremarkable. SINUSES AND MASTOIDS: The paranasal sinuses and mastoid air cells are clear. BONES: No fracture. SOFT TISSUES: Unremarkable. IMPRESSION: No acute bleed or infarct. Mild chronic ischemic and atrophic changes. /[place]
--- NOTE | 2025-01-01 18:24 | HMCIMG ---
EXAM: CR left knee, 3 View. CLINICAL HISTORY: Pain COMPARISON: None provided. FINDINGS: BONES: No acute fracture or aggressive appearing osseous lesion. JOINTS: Patellofemoral compartment predominant moderate to severe tricompartmental left knee joint osteoarthritis. Small knee joint effusion. SOFT TISSUES: The soft tissues are unremarkable. IMPRESSION: 1. Moderate to severe tricompartmental left knee osteoarthritis, predominantly patellofemoral, with small joint effusion. 2. No acute fracture. /[place]
--- NOTE | 2025-01-01 18:25 | HMCIMG ---
EXAM: CR right Knee, 3 View. CLINICAL HISTORY: Pain COMPARISON: None provided. FINDINGS: BONES: No acute fracture or aggressive appearing osseous lesion. JOINTS: Cemented right total knee arthroplasty is a near anatomic alignment. SOFT TISSUES: The soft tissues are unremarkable. IMPRESSION: 1. Right total knee arthroplasty in near anatomic alignment. 2. No acute findings. /[place]
--- NOTE | 2025-01-01 18:26 | HMCIMG ---
EXAM: CR right Hand, 3 View. CLINICAL HISTORY: Pain COMPARISON: None provided. FINDINGS: Multifocal osteoarthritis, severe at the thumb basal joint and wrist joint. Suspected nondisplaced intra-articular fracture of the base of the thumb distal phalanx. Thumb soft tissue edema. Joint spaces remain anatomically aligned. IMPRESSION: 1. Suspected nondisplaced intra-articular fracture of the base of the thumb distal phalanx with associated soft tissue edema. 2. 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 /[place]
[2025-01-01] MEDS: BACITRACIN 1 EACH PACKET TP ONE (19:01)
[2025-01-01 19:02] VITALS: BP 151/87; PULSE 80; RESP 18; TEMP 97.3; O2SAT 97
[2025-01-01] MEDS: BACITRACIN 1 EACH PACKET TP SCH (19:12)
--- NOTE | 2025-01-02 06:27 | EKG ---
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
== END 2025-01-01 19:15 | disposition home or self-care (01) ==
LOC: EDH 17:07
DX: S80.02XA Contusion of left knee, initial encounter (principal); S80.01XA Contusion of right knee, initial encounter; S80.212A Abrasion, left knee, initial encounter; S80.211A Abrasion, right knee, initial encounter; S00.91XA Abrasion of unspecified part of head, initial encounter; E78.00 Pure hypercholesterolemia, unspecified; I10 Essential (primary) hypertension; I48.91 Unspecified atrial fibrillation; Z79.01 Long term (current) use of anticoagulants; Z79.899 Other long term (current) drug therapy; Z95.810 Presence of automatic (implantable) cardiac defibrillator; Z96.651 Presence of right artificial knee joint; W01.0XXA Fall on same level from slipping, tripping and stumbling without subsequent striking against object, initial encounter; Y93.89 Activity, other specified; Y92.89 Other specified places as the place of occurrence of the external cause; Y99.8 Other external cause status
CPT/HCPCS: 29125; 70450; 73130; 73562; 93005; 99284